=== PATIENT | female | born 1965 | race Caucasian/White ===

== ENCOUNTER 2019-07-19 18:01 | Emergency (ER) | payer OTHER ==
[~2019-07-19] VITALS: Ht 160 cm; Wt 88.6 kg
[2019-07-19] MEDS ORDERED: CLON0.1T2 PO (18:27)
[2019-07-19] MEDS ORDERED: HYDROCODONE/ACETAMINOPHEN 5-325 MG TABLET PO ONE (20:30)
[2019-07-19 20:50] VITALS: BP 140/80
== END 2019-07-19 21:10 | disposition home or self-care (01) ==
LOC: EMS 19:37
DX: S96.811A Strain of other specified muscles and tendons at ankle and foot level, right foot, initial encounter (principal); M54.5 Low back pain; I10 Essential (primary) hypertension; Z90.49 Acquired absence of other specified parts of digestive tract; Z79.899 Other long term (current) drug therapy; Z98.890 Other specified postprocedural states; W18.31XA Fall on same level due to stepping on an object, initial encounter; Y93.89 Activity, other specified; Y92.89 Other specified places as the place of occurrence of the external cause; Y99.8 Other external cause status
CPT/HCPCS: 29515